=== PATIENT | female | born 1970 | race Caucasian/White ===

== ENCOUNTER → 2020-01-22 | Outpatient (CLI) | payer BC ==
[2014-10-07 15:20] VITALS: BP 117/83
[2020-01-22 15:58] LABS: BASO # 0.1 x10^3/uL (0.0-0.2); BASO % 1 % (0-3); EOS # 0.2 x10^3/uL (0.0-0.7); EOS % 3 % (0-3); HEMATOCRIT 35.6 % (36.0-47.0); HEMOGLOBIN 11.5 g/dL (12.0-15.5); LYMPH # 2.2 x10^3/uL (1.0-4.8); LYMPH % 30 % (24-48); MEAN CORPUSCULAR HEMOGLOBIN 30 pg (25-35); MEAN CORPUSCULAR HGB CONC 32 g/dL (31-37); MEAN CORPUSCULAR VOLUME 93 fL (79-100); MONO # 0.6 x10^3/uL (0.0-1.1); MONO % 8 % (0-9); NEUT # 4.4 x10^3uL (1.8-7.7); NEUT % 59 % (31-73); PLATELET COUNT 364 x10^3/uL (140-400); RED BLOOD COUNT 3.84 x10^6/uL (3.50-5.40); WHITE BLOOD COUNT 7.5 x10^3/uL (4.0-11.0)
[2020-01-23 00:06] LABS: ESTRADIOL LEVEL 96.7 pg/mL (.); FSH 1.9 mIU/mL (.); LUTEINIZING HORMONE 2.1 mIU/mL (.)
== END | disposition home or self-care (01) ==
LOC: LAB 14:13
PROVIDERS: ATTEND Nurse Practitioner Women's Health
DX: N92.6 Irregular menstruation, unspecified (principal)
CPT/HCPCS: 36415; 82670; 83001; 83002; 84443; 85025

== ENCOUNTER → 2020-03-19 | Outpatient (CLI) | payer BC ==
[2014-10-07 15:20] VITALS: BP 117/83
--- NOTE | 2020-03-19 09:47 | RAD ---
BILATERAL SCREENING MAMMOGRAM History: Routine screening. Comparison: None. This exam is the mediastinum. Technique: Routine bilateral digital mammogram views were obtained. Findings: Breast Tissue Density C : The breasts are heterogeneously dense, which may obscure small masses. Focal asymmetry involving the anterior right upper breast is present located 2.1 cm from the nipple. Benign calcifications are present bilaterally. No distortion. No definite mass. IMPRESSION: Focal asymmetry involving the left breast which probably represents dense glandular tissue. Spot compression imaging of the left anterior upper central breast is recommended. Ultrasound may be needed. BI-RADS Category 0: Incomplete: Need additional imaging evaluation. The images were reviewed with computer aided detection. Patient information is entered into the reminder system with a target due date for the next screening mammogram. Mammography is the most sensitive method for finding small breast cancers, but it does not detect them all and is not a substitute for careful clinical examination. A negative mammogram does not negate a clinically suspicious finding and should not result in delay in biopsying a clinically suspicious abnormality. "Our facility is accredited by the [employer] Mammography Program." Electronically signed by: Piter Quiñones MD (03/19/2020 9:45 AM) [facility]
--- NOTE | 2020-03-19 10:34 | RAD ---
Transabdominal and endovaginal pelvic ultrasound INDICATION: 49-year-old woman with menorrhagia. LMP 02/21/2020 Person: None TECHNIQUE: Grayscale, color and spectral Doppler imaging of the pelvis was performed transabdominally and endovaginally. FINDINGS: The uterus measures 9.5 x 5.8 x 5.6 cm by transvaginal approach. The some heterogeneity to the myometrial echotexture, best appreciated in the low anterior uterine segment. The endometrial stripe measures 1.7 cm. Right ovary not visualized due to bowel gas. Left ovary measures 2.5 x 2.6 x 1.9 cm and demonstrates normal blood flow. Small amount of pelvic free fluid is present. The cervix shows some nabothian cysts and is otherwise unremarkable. IMPRESSION: 1. Heterogeneous echogenicity to the uterine myometrium. Query submucosal leiomyoma. 2. The endometrial stripe is thickened up to 1.7 cm that could reflect the late proliferative phase. Consider follow-up within the first 10 days of the menstrual cycle to assess for persistent thickening of the endometrial stripe. Electronically signed by: Aneudy Cagle MD (03/19/2020 10:31 AM) [id number]
== END | disposition home or self-care (01) ==
LOC: US 08:04
PROVIDERS: ATTEND Nurse Practitioner Women's Health
DX: Z12.31 Encounter for screening mammogram for malignant neoplasm of breast (principal); N92.0 Excessive and frequent menstruation with regular cycle; R93.89 Abnormal findings on diagnostic imaging of other specified body structures
CPT/HCPCS: 76830; 76856; 77067

== ENCOUNTER → 2020-04-01 | Outpatient (CLI) | payer BC ==
[2014-10-07 15:20] VITALS: BP 117/83
--- NOTE | 2020-04-01 16:57 | RAD ---
Examination: 1. Left digital diagnostic mammogram. 2. Targeted left breast ultrasound. INDICATION: Screening recall for asymmetry in the superior left breast on baseline screening. COMPARISON: 03/19/2020 bilateral mammogram. TECHNIQUE: Spot compression views of the left breast in the CC and MLO projections were obtained. Targeted ultrasound of the superior left breast from 11-1 o'clock was also performed using grayscale and color Doppler imaging. FINDINGS: Heterogeneously dense breast parenchyma. The questioned asymmetry changes configuration in a pattern compatible with benign overlap of fibroglandular tissue. There is no suspicious calcification, architectural distortion or persistent mass. Given the density of breast tissue, targeted ultrasound of the superior left breast was pursued. This showed dense fibroglandular tissue with no suspicious sonographic findings. A 7 mm oval parallel orientation circumscribed mass at the 1:00 position 1.5 cm from nipple was identified within the dense fibroglandular tissue that sonographically is benign most compatible with an intramammary lymph node. IMPRESSION: Benign findings on left diagnostic mammogram and targeted left breast ultrasound. No evidence of malignancy. Recommend return to routine screening next due in one year. BI-RADS Category 2 Benign Patient entered into a reminder system with targeted due date for next mammogram. Electronically signed by: Aneudy Cagle MD (04/01/2020 4:54 PM) [id number]
== END ==
LOC: MAMMO 13:09
PROVIDERS: ATTEND Nurse Practitioner Women's Health
DX: R92.2 Inconclusive mammogram (principal); N63.21 Unspecified lump in the left breast, upper outer quadrant
CPT/HCPCS: 76641; 77065